=== PATIENT | male | born 2000 | race Caucasian/White ===

== ENCOUNTER 2022-07-02 19:09 | Emergency (ER) | payer BC | END 2022-07-02 20:39 | disposition home or self-care (01) | LOC: MW.ED 19:09 | DX: G47.00 Insomnia, unspecified (principal); R45.4 Irritability and anger; Z76.0 Encounter for issue of repeat prescription; T43.205A Adverse effect of unspecified antidepressants, initial encounter | CPT/HCPCS: 99283 ==